=== PATIENT | female | born 1935 | race Caucasian/White ===

== ENCOUNTER 2019-07-23 08:00 | Inpatient (IN) | payer MEDICARE, OTHER ==
[~2019-07-23] VITALS: Ht 165.1 cm; Wt 71.4 kg
[~2019-07-23 08:00] MED LIST: BACITRACIN 50,000 UNITS/VIAL ONE; BUPIVACAINE HCL/PF 0.5% 30 ML VIAL ONE; BUPIVACAINE LIPOSOME/PF 1.3%-13.3MG/ML SUSPENSION 20 ML VIAL INJ ONE; RINGERS SOLUTION,LACTATED 1,000 ML IV ONE; SODIUM CHLORIDE 0.9% 100 ML ONE; SODIUM CL IRRIG SOLN BAG 3,000 ML IRRIG ONE; TRANEXAMIC ACID 1,000 MG in DEXTROSE 5%-WATER 50 ML IV ONE
[2019-07-23] MEDS ORDERED: CHOL100018 PO (08:34)
[2019-07-23] MEDS ORDERED: CALC1TAB90 PO (08:34)
[2019-07-23] MEDS ORDERED: ASPI-1182 PO (08:34)
[2019-07-23] MEDS ORDERED: LOSA25TA41 PO (08:34)
[2019-07-23] MEDS ORDERED: SIMV-260 PO (08:34)
[2019-07-23] MEDS ORDERED: BUPIVACAINE HCL/PF 0.5% 30 ML VIAL ONE (08:55)
[2019-07-23] MEDS ORDERED: HYDROmorphone 2 MG/ML SYRINGE IVP PRN ×2 (09:15)
[2019-07-23] MEDS ORDERED: FentaNYL CITRATE-PF 100 MCG/2 ML VIAL IVP PRN (09:15)
[2019-07-23] MEDS ORDERED: MEPERIDINE-PF 25 MG/ML VIAL IVP PRN (09:15)
[2019-07-23] MEDS ORDERED: OxyCODONE HCL/ACETAMINOPHEN 5-325 MG TABLET PO PRN ×2 (09:15)
[2019-07-23] MEDS ORDERED: PROPOFOL 1000 MG/ISO-OSM 100 ML IV ONE (09:42)
[2019-07-23] MEDS ORDERED: BUPIVACAINE HCL/DEX-WATER/PF 0.75% 2 ML AMP ONE (09:42)
[2019-07-23] MEDS ORDERED: ACETAMINOPHEN 1000 MG/ISO-OSM 100 ML IV ONE (10:15)
[2019-07-23] MEDS ORDERED: LIDOCAINE/PF 2% 5 ML VIAL INJ ONE (12:00)
[2019-07-23] MEDS ORDERED: ONDANSETRON HCL 4 MG/2 ML VIAL IVP ONE (12:00)
[2019-07-23] MEDS ORDERED: DEXAMETHASONE SOD PHOS 4 MG/ML VIAL IVP ONE (12:00)
[2019-07-23] MEDS ORDERED: 0.9% SODIUM CHLORIDE 10 ML VIAL IVP ONE (12:00)
[2019-07-23] MEDS ORDERED: PROPOFOL 1% 20 ML VIAL IVP ONE (12:00)
[2019-07-23] MEDS ORDERED: FentaNYL CITRATE-PF 100 MCG/2 ML VIAL IVP ONE (12:00)
[2019-07-23] MEDS ORDERED: ONDANSETRON HCL 4 MG/2 ML VIAL IVP PRN (12:15)
[2019-07-23] MEDS ORDERED: MAG HYDROX/AL HYDROX/SIMETH 30 ML SUSP UDCUP PO PRN (12:15)
[2019-07-23] MEDS ORDERED: DiphenhydrAMINE HCL 50 MG/ML VIAL IVP PRN (12:15)
[2019-07-23] MEDS ORDERED: BACITRACIN 28.4 GM OINTMENT TP PRN (12:15)
[2019-07-23] MEDS ORDERED: BISACODYL 10 MG RECTAL RECTAL SUPPOSITORY PR PRN (12:15)
[2019-07-23 13:52] VITALS: BP 117/60
[2019-07-23 15:07] VITALS: BP 100/58
[2019-07-23] MEDS: CeFAZolin 1 GM/DEXTROSE 50 ML IV SCH (17:19)
[2019-07-23] MEDS: CYCLOBENZAPRINE HCL 10 MG TABLET PO SCH ×2 (17:19→20:47)
[2019-07-23] MEDS: DEXTROSE 5%-LACTATED RINGERS 1,000 ML IV SCH (17:19)
[2019-07-23 20:00] VITALS: BP 108/67
[2019-07-23] MEDS: FAMOTIDINE 20 MG TABLET PO SCH (20:47)
[2019-07-23] MEDS: CELECOXIB 100 MG CAPSULE PO SCH (20:48)
[2019-07-23] MEDS: DOCUSATE SODIUM 100 MG CAPSULE PO SCH (20:48)
[2019-07-24] VITALS (7 sets, daily range): BP systolic 92–128; BP diastolic 53–79
[2019-07-24] MEDS: CeFAZolin 1 GM/DEXTROSE 50 ML IV SCH (02:56)
[2019-07-24 05:42] LABS: BASOPHILS % (AUTO) 0.1 % (0.0-2.0); EOSINOPHILS % (AUTO) 0 % (1.0-6.0); HEMATOCRIT 30.8 % (36-46); HEMOGLOBIN 9.9 g/dL (12.0-16.0); LYMPHOCYTES # (AUTO) 0.9 K/uL (1.0-4.8); LYMPHOCYTES % (AUTO) 8.8 % (22.0-44.0); MEAN CORPUSCULAR HEMOGLOBIN 26.9 pg (26.0-34.0); MEAN CORPUSCULAR HGB CONC 32.3 G/dL (31.0-37.0); MEAN CORPUSCULAR VOLUME 83 fL (80-100); MONOCYTES % (AUTO) 9.9 % (2.0-9.0); NEUTROPHILS % (AUTO) 81.2 % (40.0-70.0); PLATELET COUNT (AUTO) 187 K/uL (150-450); RED BLOOD CELL COUNT(AUTO) 3.69 MIL/uL (4.00-5.20); RED CELL DISTRIBUTION WIDTH 14.6 % (11.5-14.5)
[2019-07-24] MEDS: CYCLOBENZAPRINE HCL 10 MG TABLET PO SCH ×3 (08:23→20:04)
[2019-07-24] MEDS: DOCUSATE SODIUM 100 MG CAPSULE PO SCH ×2 (08:23→20:03)
[2019-07-24] MEDS: FAMOTIDINE 20 MG TABLET PO SCH ×2 (08:23→20:03)
[2019-07-24] MEDS: CELECOXIB 100 MG CAPSULE PO SCH ×2 (08:23→20:03)
[2019-07-24] MEDS: DEXTROSE 5%-LACTATED RINGERS 1,000 ML IV SCH ×2 (08:28→20:24)
[2019-07-24] MEDS: RIVAROXABAN 10 MG TABLET PO SCH (17:31)
[2019-07-25] MEDS: DEXTROSE 5%-LACTATED RINGERS 1,000 ML IV SCH (04:06)
[2019-07-25 04:35] VITALS: BP 136/53
[2019-07-25 07:22] VITALS: BP 114/63
[2019-07-25] MEDS: OXYGEN THERAPY IH SCH ×2 (08:00→20:00)
[2019-07-25] MEDS: CYCLOBENZAPRINE HCL 10 MG TABLET PO SCH ×3 (08:04→21:00)
[2019-07-25] MEDS: FAMOTIDINE 20 MG TABLET PO SCH ×2 (08:04→21:54)
[2019-07-25] MEDS: CELECOXIB 100 MG CAPSULE PO SCH ×2 (08:04→21:00)
[2019-07-25] MEDS: DOCUSATE SODIUM 100 MG CAPSULE PO SCH ×2 (08:04→21:54)
[2019-07-25 11:59] VITALS: BP 126/71
[2019-07-25 15:31] VITALS: BP 127/70
[2019-07-25] MEDS: RIVAROXABAN 10 MG TABLET PO SCH (16:38)
[2019-07-25] MEDS ORDERED: METOPROLOL TARTRATE 25 MG TABLET PO ONE (20:45)
[2019-07-25 21:04] VITALS: BP 135/74
[2019-07-26 00:02] VITALS: BP 123/57
[2019-07-26 05:50] VITALS: BP 127/78
[2019-07-26 08:05] VITALS: BP 121/66
[2019-07-26] MEDS: CELECOXIB 100 MG CAPSULE PO SCH (08:52)
[2019-07-26] MEDS: DOCUSATE SODIUM 100 MG CAPSULE PO SCH (08:53)
[2019-07-26] MEDS: FAMOTIDINE 20 MG TABLET PO SCH (08:53)
[2019-07-26] MEDS: CYCLOBENZAPRINE HCL 10 MG TABLET PO SCH (08:53)
[2019-07-26 12:44] VITALS: BP 138/62
== END 2019-07-26 13:30 | DRG 470 ==
LOC: 6N 08:00 → 4E 10:32
PROVIDERS: ADMIT Orthopaedic Surgery; ATTEND Orthopaedic Surgery
PROC: 0SRD0J9 Replacement of Left Knee Joint with Synthetic Substitute, Cemented, Open Approach (ICD-10-PCS; principal; 2019-07-23 10:00)
DX: M17.12 Unilateral primary osteoarthritis, left knee (principal); E78.5 Hyperlipidemia, unspecified; I10 Essential (primary) hypertension
CPT/HCPCS: 87081; 88300; 93005; 97110; 97116; 97162; 97166; 97530; 97535; C9290; G0238; G0378; J0131; J0690; J1100; J2405; J2704; J3010; J3490; J7050; J7060; J7120